=== PATIENT | female | born 1990 | race American Indian/Alaskan Native ===

== ENCOUNTER 2018-04-21 05:40 | Emergency (ER) | payer SELFPAY ==
[2018-04-21] MEDS ORDERED: D50W (25GM) Syringe IV ONE ×2 (05:52→06:00)
--- NOTE | 2018-04-21 06:42 | Emergency Department Report ---
ED General Adult HPI - General Chief complaint: Hypoglycemia Stated complaint: LOW BLOOD GLUCOSE Time Seen by Provider: 04/21/18 06:26 Source: patient, family, EMS (ems notes not available at time of chart dictation), RN notes reviewed Mode of arrival: Stretcher Limitations: No Limitations - History of Present Illness Initial comments: This is a 27-year-old female who is unknown to this provider previously, primary care doctor at [facility], past medical history of eating disorder as per family, currently taking Adderall, BuSpar and as needed Ativan. Presents to the ER with EMS after episode of hypoglycemia. This was corrected with D5 1 amp, patient indicates she is not eating that much. Family indicates this is happened in the past. The patient denies headache, neck pain, chest pain, abdominal pain, shortness of breath, urinary symptoms. She indicates to 3 episodes of loose, watery, diarrhea. She is not taking any hypoglycemic medications. -: Gradual Consistency: intermittent Improves with: medication Worsens with: other (symptoms are worsened when the patient does not.) Associated Symptoms: malaise, weakness, other (as per history of present illness ). denies: confusion, chest pain, cough, diaphoresis, fever/chills, headaches, loss of appetite, nausea/vomiting, rash, seizure, shortness of breath, syncope Treatments Prior to Arrival: other (as per history of present illness) - Related Data Previous Rx's Medication Instructions Recorded Last Taken Type Diabetic Supplies,Miscell [Ez-Vac] 1 each Q6HR #30 miscell 04/21/18 Unknown Rx Medical Supply, Miscellaneous 1 each QID #1 each 04/21/18 Unknown Rx [Ada] Allergies Allergy/AdvReac Type Severity Reaction Status Date / Time No Known Allergies Allergy Verified 04/21/18 06:18 ED Review of Systems ROS: Stated complaint: LOW BLOOD GLUCOSE Other details as noted in HPI Comment: All other systems reviewed and negative ED Past Medical Hx - Past Medical History Previous Medical History?: Yes Additional medical history: ADHD, anxiety eating disorder - Surgical History Past Surgical History?: No - Social History Smoking Status: Never Smoker Substance Use Type: None - Medications Home Medications: Home Medications Medication Instructions Recorded Confirmed Last Taken Type Diabetic Supplies,Miscell [Ez-Vac] 1 each Q6HR #30 miscell 04/21/18 Unknown Rx Medical Supply, Miscellaneous 1 each QID #1 each 04/21/18 Unknown Rx [[place]] ED Physical Exam - General Limitations: No Limitations General appearance: alert, in no apparent distress - Head Head exam: Present: atraumatic, normocephalic - Eye Eye exam: Present: normal appearance, PERRL, EOMI, other (visual acuity intact to finger counting, color perception, reading at a close distance). Absent: nystagmus - ENT ENT exam: Present: normal exam, normal orophraynx, mucous membranes moist, normal external ear exam - Neck Neck exam: Present: normal inspection, full ROM - Respiratory Respiratory exam: Present: normal lung sounds bilaterally. Absent: respiratory distress - Cardiovascular Cardiovascular Exam: Present: regular rate, normal rhythm, normal heart sounds. Absent: bradycardia, tachycardia, irregular rhythm, systolic murmur, diastolic murmur, rubs, gallop - GI/Abdominal GI/Abdominal exam: Present: soft, normal bowel sounds. Absent: distended, tenderness, guarding, rebound, rigid, pulsatile mass - Extremities Exam Extremities exam: Present: normal inspection, full ROM, normal capillary refill , other (there is no palpable cord. There is a negative Homans sign). Absent: pedal edema, joint swelling, calf tenderness - Back Exam Back exam: Present: normal inspection, full ROM. Absent: tenderness, CVA tenderness (R), paraspinal tenderness, vertebral tenderness - Neurological Exam Neurological exam: Present: alert, oriented X3 - Psychiatric Psychiatric exam: Present: depressed, anxious. Absent: homicidal ideation, suicidal ideation - Skin Skin exam: Present: warm, dry, intact, normal color. Absent: rash ED Course Vital Signs 04/21/18 04/21/18 04/21/18 05:40 05:46 05:58 Temperature 98 F Pulse Rate 89 Respiratory 16 Rate Blood Pressure 100/63 100/63 100/63 O2 Sat by Pulse 99 100 Oximetry 04/21/18 04/21/18 04/21/18 06:00 06:11 06:15 Temperature Pulse Rate Respiratory 16 Rate Blood Pressure 100/63 102/65 O2 Sat by Pulse 98 100 100 Oximetry 04/21/18 04/21/18 04/21/18 06:30 09:05 09:16 Temperature Pulse Rate Respiratory Rate Blood Pressure 102/65 103/63 103/63 O2 Sat by Pulse 99 100 Oximetry 04/21/18 04/21/18 04/21/18 09:30 09:52 10:00 Temperature Pulse Rate Respiratory Rate Blood Pressure 103/63 103/63 103/63 O2 Sat by Pulse 100 98 98 Oximetry 04/21/18 04/21/18 04/21/18 10:16 10:30 10:46 Temperature Pulse Rate Respiratory Rate Blood Pressure 103/63 103/63 103/63 O2 Sat by Pulse 100 99 100 Oximetry 04/21/18 04/21/18 11:00 11:16 Temperature Pulse Rate Respiratory Rate Blood Pressure 103/63 103/63 O2 Sat by Pulse 100 98 Oximetry - Reevaluation(s) Reevaluation #1: 04/21/18 08:52 Differential diagnosis, including but not limited to: Urinary tract infection, thyroid abnormality, hepatic abnormality, hypoglycemia secondary to poor oral intake Assessment and plan: 27-year-old female with hypoglycemia. This is her second episode within the week. She is not taking any hypoglycemic medications. The etiology of her hypoglycemia is most likely poor oral intake. The patient is alert and oriented 3, clinically sober, walks with a steady gait , and has a GCS of 15. Patient's initially was eating sparsely in the emergency room, and had another episode of hypoglycemia. This was corrected with D50, and when the patient was awake explained to the patient explicitly that she needed to eat all the food that was presented to her, and that the risks of not eating enough food in the day could resultant persistent hypoglycemia, which in turn could result in , disability, paralysis, loss of quality of life. The patient does not meet 1013 criteria at this time, she is not homicidal or suicidal, but she also exhibits decision-making capacity. I will obtain a crisis/mental health evaluation to assist in giving patient outpatient resources for what is likely an exacerbation of her underlying reported eating disorder. I have also explained to the patient's family how to best watch her at home, and they were taught how to use a glucometer, and finger testing strips. Reevaluation #2: 04/21/18 10:53 The patient has been seen in conjunction with the crisis team who have provided her with outpatient resources for possible eating disorders. Patient is noted to be eating. Her Accu-Chek remains within acceptable limits. She is again encouraged to eat throughout the day, and family was educated as to how to perform finger testing at home. ED Medical Decision Making - Lab Data Result diagrams: 04/21/18 06:25 04/21/18 06:25 Critical care attestation.: If time is entered above; I have spent that time in minutes in the direct care of this critically ill patient, excluding procedure time. ED Disposition Clinical Impression: Hypoglycemia Disposition: DC-01 TO HOME OR SELFCARE Is pt being admited?: No Does the pt Need Aspirin: No Condition: Good Instructions: Non-diabetic Hypoglycemia (ED) Additional Instructions: Make certain to eat at least 4 meals a day. Not eating as directed can result in persistent low blood sugar levels, which in turn and result in , disability, paralysis, loss of quality of life. Use the glucometer device as directed, in conjunction with the finger testing strips and needles. Follow-up with a primary care doctor within the next month. Follow-up with psychiatrist or therapist within the next month. Return to the ER right away with fevers, chills, lethargy, irritability, projectile vomiting, change in mental status, confusion, inability to tolerate liquid feeds. Prescriptions: Diabetic Supplies,Miscell [Ez-Vac] 1 each MC Q6HR #30 miscell Medical Supply, Miscellaneous [Ada] 1 each MC QID #1 each Referrals: PRIMARY CAREMD [Referring] - 3-5 Days ELENITA CARRILLO MD [Staff Physician] - 3-5 Days [facility] [Outside] - 3-5 Days
[2018-04-21 07:15] LABS: Basophils % (Auto) 0.4 % (0.0-1.8); Lymphocytes # (Auto) 1.2 K/mm3 (1.2-5.4); Lymphocytes % (Auto) 22.5 % (13.4-35.0); Mean Corpuscular HGB Conc 37 % (30-34); Mean Corpuscular Hemoglobin 35 pg (28-32); Mean Corpuscular Volume 96 fl (79-97); Monocytes # (Auto) 0.4 K/mm3 (0.0-0.8); Platelet Count 314 K/mm3 (140-440); Red Blood Count 3.63 M/mm3 (3.65-5.03); Red Cell Distribution Width 14.2 % (13.2-15.2)
[2018-04-21 07:28] LABS: BUN/Creatinine Ratio 17; Blood Urea Nitrogen 5 mg/dL (7-17); Calcium 8.3 mg/dL (8.4-10.2); Hemoglobin 12.8 gm/dl (10.1-14.3); Hemolysis Index 5
[2018-04-21 07:32] LABS: Alanine Aminotransferase 9 units/L (7-56); Albumin 4.1 g/dL (3.9-5)
[2018-04-21 07:36] LABS: Bilirubin,Direct < 0.2 mg/dL (0-0.2)
[2018-04-21 08:42] LABS: Bilirubin,Urine NEG (Negative); Blood,Urine NEG (Negative); Color,Urine Yellow (Yellow); Mucus,Urine FEW /HPF; Protein,Urine <15 mg/dL mg/dL (Negative); Urobilinogen,Urine < 2.0 mg/dL (<2.0)
[2018-04-21 08:53] LABS: Amphetamine Screen,Urine PRESUMPTIVE NEGATIVE; Benzodiazepines Screen,Urine PRESUMPTIVE NEGATIVE; Cannabinoid Screen,Urine PRESUMPTIVE NEGATIVE; Cocaine Screen,Urine PRESUMPTIVE NEGATIVE; Methadone Screen,Urine PRESUMPTIVE NEGATIVE; Opiate Screen,Urine PRESUMPTIVE NEGATIVE
[2018-04-21 10:35] VITALS: BP 103/63
== END 2018-04-21 11:39 | disposition home or self-care (01) ==
LOC: ED 05:40
DX: E16.2 Hypoglycemia, unspecified (principal); F90.9 Attention-deficit hyperactivity disorder, unspecified type; F41.9 Anxiety disorder, unspecified
CPT/HCPCS: 36415; 80048; 80074; 80307; 81001; 82962; 84439; 84443; 84702; 85025; 96374; 99284

== ENCOUNTER 2020-10-28 15:37 | Emergency (ER) | payer SELFPAY ==
[2020-10-28] MEDS ORDERED: levETIRAcetam 1000 MG/NS 0.75% 1,000 MG/100 ML BAG IV ONE (16:25)
--- NOTE | 2020-10-28 16:29 | Emergency Department Report ---
ED Seizure HPI - General Chief Complaint: Seizure Stated Complaint: SEIZURE Time Seen by Provider: 10/28/20 16:16 Source: patient, EMS Mode of arrival: Stretcher Limitations: Altered Mental Status - History of Present Illness Initial Comments: Patient is a 30-year-old F [place]ian female who according to records has a history of seizures and alcohol abuse who is presenting status post seizure. Patient currently is postictal and is unable to give affective history. Patient does state that she takes seizure medicines but cannot detail which she takes. Patient is a last visit here she signed out AGAINST MEDICAL ADVICE. Patient states she is just sleepy at the moment but again would not give any additional history likely secondary to a postictal state - Related Data Previous Rx's Medication Instructions Recorded Last Taken Type Diabetic Supplies,Miscell [Ez-Vac] 1 each MC Q6HR #30 miscell 04/21/18 Unknown Rx Medical Supply, Miscellaneous 1 each MC QID #1 each 04/21/18 Unknown Rx [[place]] Allergies Allergy/AdvReac Type Severity Reaction Status Date / Time No Known Allergies Allergy Verified 04/21/18 06:18 ED Review of Systems ROS: Stated complaint: SEIZURE Other details as noted in HPI Comment: Unobtainable due to pts medical conditions ED Past Medical Hx - Past Medical History Hx Seizures: Yes Additional medical history: ADHD, anxiety, eating disorder - Social History Smoking Status: Current Every Day Smoker Substance Use Type: Alcohol - Medications Home Medications: Home Medications Medication Instructions Recorded Confirmed Last Taken Type Diabetic Supplies,Miscell [Ez-Vac] 1 each MC Q6HR #30 miscell 04/21/18 Unknown Rx Medical Supply, Miscellaneous 1 each MC QID #1 each 04/21/18 Unknown Rx [[place]] ED Physical Exam - General Limitations: Altered Mental Status General appearance: in no apparent distress, lethargic, postictal - Head Head exam: Present: atraumatic, normocephalic - Eye Eye exam: Present: normal appearance, PERRL, EOMI - ENT ENT exam: Present: mucous membranes moist - Neck Neck exam: Present: normal inspection - Respiratory Respiratory exam: Present: normal lung sounds bilaterally. Absent: respiratory distress, wheezes, rales, rhonchi - Cardiovascular Cardiovascular Exam: Present: regular rate, normal rhythm, normal heart sounds. Absent: systolic murmur, diastolic murmur, rubs, gallop - GI/Abdominal GI/Abdominal exam: Present: soft, normal bowel sounds. Absent: distended, tenderness, guarding, rebound - Extremities Exam Extremities exam: Present: normal inspection - Back Exam Back exam: Present: normal inspection - Neurological Exam Neurological exam: Present: alert, oriented X3 - Psychiatric Psychiatric exam: Present: normal affect, normal mood - Skin Skin exam: Present: warm, dry, intact, normal color. Absent: rash ED Course Vital Signs 10/28/20 10/28/20 16:15 16:24 Temperature 98.5 F Pulse Rate 98 H Respiratory 18 20 Rate Blood Pressure 129/74 O2 Sat by Pulse 100 100 Oximetry ED Medical Decision Making - Lab Data Result diagrams: 10/28/20 16:32 10/28/20 16:32 Lab Results 10/28/20 10/28/20 10/28/20 Range/Units 16:32 16:32 16:32 WBC 5.5 (4.5-11.0) K/mm3 RBC 2.99 L (3.65-5.03) M/mm3 Hgb 10.5 (10.1-14.3) gm/dl Hct 32.0 (30.3-42.9) % MCV 107 H (79-97) fl MCH 35 H (28-32) pg MCHC 33 (30-34) % RDW 22.1 H (13.2-15.2) % Plt Count 353 (140-440) K/mm3 Lymph % (Auto) [employer] [place] % (Auto) [employer] Eos % (Auto) [employer] Baso % (Auto) [employer] Lymph # (Auto) [employer] [place] # (Auto) [employer]ings [employer] Eos # (Auto) [employer] Baso # (Auto) [employer]er Seg Neutrophils % [employer]er Seg Neutrophils # [employer] Sodium 139 (137-145) mmol/L Potassium 3.8 (3.6-5.0) mmol/L Chloride 104.2 (98-107) mmol/L Carbon Dioxide 22 (22-30) mmol/L Anion Gap 17 mmol/L BUN 8 (7-17) mg/dL Creatinine 0.4 L (0.6-1.2) mg/dL Estimated GFR > 60 ml/min BUN/Creatinine Ratio 20 % Glucose 101 H (65-100) mg/dL Calcium 9.0 (8.4-10.2) mg/dL HCG, Qual Negative (Negative) Urine Color (Yellow) Urine Turbidity (Clear) Urine pH (5.0-7.0) Ur Specific [place] (1.003-1.030) Urine Protein (Negative) mg/dL Urine Glucose (UA) (Negative) mg/dL Urine Ketones (Negative) mg/dL Urine Blood (Negative) Urine Nitrite (Negative) Urine Bilirubin (Negative) Urine Urobilinogen (<2.0) mg/dL Ur Leukocyte Esterase (Negative) Urine WBC (Auto) (0.0-6.0) /HPF Urine RBC (Auto) (0.0-6.0) /HPF U Epithel Cells (Auto) (0-13.0) /HPF Urine Opiates Screen Urine Methadone Screen Ur Barbiturates Screen Ur Phencyclidine Scrn Ur Amphetamines Screen U Benzodiazepines Scrn Urine Cocaine Screen U Marijuana (THC) Screen Drugs of Abuse Note Plasma/Serum Alcohol (0-0.07) % 10/28/20 10/28/20 10/28/20 Range/Units 16:32 19:54 19:54 WBC (4.5-11.0) K/mm3 RBC (3.65-5.03) M/mm3 Hgb (10.1-14.3) gm/dl Hct (30.3-42.9) % MCV (79-97) fl MCH (28-32) pg MCHC (30-34) % RDW (13.2-15.2) % Plt Count (140-440) K/mm3 Lymph % (Auto) [place] % (Auto) Eos % (Auto) Baso % (Auto) Lymph # (Auto) [place] # (Auto) Eos # (Auto) Baso # (Auto) Seg Neutrophils % Seg Neutrophils # Sodium (137-145) mmol/L Potassium (3.6-5.0) mmol/L Chloride (98-107) mmol/L Carbon Dioxide (22-30) mmol/L Anion Gap mmol/L BUN (7-17) mg/dL Creatinine (0.6-1.2) mg/dL Estimated GFR ml/min BUN/Creatinine Ratio % Glucose (65-100) mg/dL Calcium (8.4-10.2) mg/dL HCG, Qual (Negative) Urine Color Straw (Yellow) Urine Turbidity Clear (Clear) Urine pH 5.0 (5.0-7.0) Ur Specific [place] 1.012 (1.003-1.030) Urine Protein <15 mg/dl (Negative) mg/dL Urine Glucose (UA) Neg (Negative) mg/dL Urine Ketones Neg (Negative) mg/dL Urine Blood Neg (Negative) Urine Nitrite Neg (Negative) Urine Bilirubin Neg (Negative) Urine Urobilinogen < 2.0 (<2.0) mg/dL Ur Leukocyte Esterase Neg (Negative) Urine WBC (Auto) 1.0 (0.0-6.0) /HPF Urine RBC (Auto) 1.0 (0.0-6.0) /HPF U Epithel Cells (Auto) 3.0 (0-13.0) /HPF Urine Opiates Screen Negative Urine Methadone Screen Negative Ur Barbiturates Screen Negative Ur Phencyclidine Scrn Negative Ur Amphetamines Screen Negative U Benzodiazepines Scrn Negative Urine Cocaine Screen Negative U Marijuana (THC) Screen Negative Drugs of Abuse Note Disclamer Plasma/Serum Alcohol 0.33 H (0-0.07) % - Medical Decision Making After waking up the patient is started being very demanding with nursing staff. Looking at the patient's laboratory studies it appears as though the patient is significantly alcohol intoxicated. I did confront the patient about this since the patient was actually at work when she had her "seizure". Patient does admit that she has had seizures in the past but weaned herself off above Dilantin and Keppra because she "does not like the way they make me feel". Patient states that she was drinking late last night but was not drinking at work. The level of her alcohol in her blood does not suggest not drinking for the last at least 8 hours. Patient then started complaining of some lower abdominal pain and not having a menstrual period for the last year. Urinalysis was checked which showed no evidence of UTI. Patient was able to eat with no issue here in the emergency department. test is normal. Patient will be discharged in the custody of family member. Patient given resources for alcohol abuse programs and she is discharged. Critical care attestation.: If time is entered above; I have spent that time in minutes in the direct care of this critically ill patient, excluding procedure time. ED Disposition Clinical Impression: Alcohol intoxication Qualifiers: Complication of substance-induced condition: uncomplicated Qualified Code(s): F10.920 - Alcohol use, unspecified with intoxication, uncomplicated Disposition: DC-01 TO HOME OR SELFCARE Is pt being admited?: No Does the pt Need Aspirin: No Condition: Stable Instructions: Alcohol Use Disorder, Alcohol Intoxication Referrals: PRIMARY CARE, [Primary Care Provider] - 3-5 Days Time of Disposition: 20:41
[2020-10-28 17:13] LABS: Blood Urea Nitrogen 8 mg/dL (7-17); Hemolysis Index 25
[2020-10-28 17:14] LABS: BUN/Creatinine Ratio 20
[2020-10-28 17:35] LABS: Hemoglobin 10.5 gm/dl (10.1-14.3); Mean Corpuscular HGB Conc 33 % (30-34); Mean Corpuscular Volume 107 fl (79-97); Platelet Count 353 K/mm3 (140-440); Red Blood Count 2.99 M/mm3 (3.65-5.03); Red Cell Distribution Width 22.1 % (13.2-15.2)
[2020-10-28 20:15] LABS: Amphetamine Screen,Urine Negative; Benzodiazepines Screen,Urine Negative; Cannabinoid Screen,Urine Negative; Cocaine Screen,Urine Negative; Methadone Screen,Urine Negative; Opiate Screen,Urine Negative
[2020-10-28 20:32] LABS: Bilirubin,Urine NEG (Negative); Blood,Urine NEG (Negative); Color,Urine Straw (Yellow); Protein,Urine <15 mg/dL mg/dL (Negative); Urobilinogen,Urine < 2.0 mg/dL (<2.0)
[2020-10-29 00:53] VITALS: BP 121/77
== END 2020-10-28 21:15 | disposition home or self-care (01) ==
LOC: ED 15:37
DX: F10.920 Alcohol use, unspecified with intoxication, uncomplicated (principal); F17.200 Nicotine dependence, unspecified, uncomplicated; F41.9 Anxiety disorder, unspecified; Z79.899 Other long term (current) drug therapy
CPT/HCPCS: 36415; 80048; 80307; 81001; 84703; 85025; 96374; 99284; J1953; 80320; G0480

== ENCOUNTER 2021-01-04 15:30 | Emergency (ER) | payer BC ==
[2021-01-04] MEDS ORDERED: LORazepam 2 MG/ML VIAL IV ONE (16:07)
[2021-01-04] MEDS ORDERED: levETIRAcetam 500 MG/5 ML ORAL LIQD PO ONE (16:07)
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
[2021-01-04 21:03] VITALS: BP 88/54
== END 2021-01-04 20:40 | disposition home or self-care (01) ==
LOC: ED 15:30
DX: R56.9 Unspecified convulsions (principal); F41.9 Anxiety disorder, unspecified; Z79.899 Other long term (current) drug therapy
CPT/HCPCS: 96374; 99283; J2060

== ENCOUNTER 2021-01-13 07:42 | Emergency (ER) | payer BC ==
[2021-01-13] MEDS ORDERED: levETIRAcetam 1000 MG/NS 0.75% 1,000 MG/100 ML BAG IV ONE (07:58)
[2021-01-13] MEDS ORDERED: BUTALB/ACETAMINOPHEN/CAFFEINE TAB PO ONE (07:59)
[2021-01-13] MEDS ORDERED: SODIUM CHLORIDE 0.9% 1000 ML 1,000 ML IV ONE (07:59)
--- NOTE | 2021-01-13 08:05 | Emergency Department Report ---
HPI - General Chief Complaint: Seizure PUI?: No Time Seen by Provider: 01/13/21 07:55 - HPI HPI: Room 40 The patient is a 30-year-old female present with a chief complaint of seizure. Patient has a history of seizures and states she has been compliant "for the most part" with her Keppra. The patient was at work when she had a witnessed generalized tonic-clonic seizure. EMS was called and the patient had a second seizure with EMS lasting approximately 30 seconds. Patient was administered Ativan by EMS prior to arrival. Patient now complains of a headache, fatigue and chronic back pain from a herniated disc ED Past Medical Hx - Past Medical History Hx Seizures: Yes Additional medical history: seizures, ADHD, anxiety, eating disorder - Surgical History Past Surgical History?: No - Family History Family history: no significant - Social History Smoking Status: Never Smoker Substance Use Type: None - Medications Home Medications: Home Medications Medication Instructions Recorded Confirmed Last Taken Type levETIRAcetam [Keppra TAB] 500 mg PO BID #60 tablet 01/04/21 01/13/21 Unknown Rx Butalb/Acetamin/Caff 50-325-40 2 tab PO Q8HR PRN #10 tablet 01/13/21 Unknown Rx [Fioricet 50-325-40] Dextroamphetamine/Amphetamine 20 mg PO DAILY 01/13/21 01/13/21 Unknown History [Adderall 20 mg Tablet] LORazepam [Ativan] 2 mg PO Q8HR PRN 01/13/21 01/13/21 Unknown History ED Review of Systems ROS: Stated complaint: SEIZURE Other details as noted in HPI Constitutional: malaise Eyes: denies: eye pain ENT: denies: throat pain Respiratory: no symptoms reported Cardiovascular: denies: chest pain Endocrine: no symptoms reported Gastrointestinal: nausea. denies: abdominal pain Genitourinary: denies: dysuria Musculoskeletal: back pain Neurological: headache Physical Exam - Physical Exam Vital Signs: Vital Signs 01/13/21 07:47 Temperature 97.8 F Pulse Rate 92 H Respiratory 18 Rate Blood Pressure 96/58 [Right] O2 Sat by Pulse 100 Oximetry Physical Exam: GENERAL: The patient is well-developed well-nourished female lying on stretcher not appearing to be in acute distress. [] HEENT: Normocephalic. Atraumatic. Extraocular motions are intact. Patient has moist mucous membranes. NECK: Supple. Trachea midline CHEST/LUNGS: Clear to auscultation. There is no respiratory distress noted. HEART/CARDIOVASCULAR: Regular. There is no tachycardia. There is no gallop rub or murmur. ABDOMEN: Abdomen is soft, nontender. Patient has normal bowel sounds. There is no abdominal distention. SKIN: There is no rash. There is no edema. There is no diaphoresis. NEURO: The patient is awake, alert, and oriented. The patient is cooperative. The patient has no focal neurologic deficits. The patient has normal speech. Cranial nerves II through XII grossly intact MUSCULOSKELETAL: There is no evidence of acute injury. ED Course Vital Signs 01/13/21 07:47 Temperature 97.8 F Pulse Rate 92 H Respiratory 18 Rate Blood Pressure 96/58 [Right] O2 Sat by Pulse 100 Oximetry ED Medical Decision Making - Lab Data Result diagrams: 01/13/21 08:16 01/13/21 08:16 Laboratory Tests 01/13/21 01/13/21 01/13/21 08:16 08:16 08:16 WBC 5.3 RBC 3.09 L Hgb 11.1 Hct 32.4 MCV 105 H MCH 36 H MCHC 34 RDW 18.8 H Plt Count 308 Lymph % (Auto) 34.2 [place] % (Auto) 8.9 H Eos % (Auto) 0.6 Baso % (Auto) 0.8 Lymph # (Auto) 1.8 [place] # (Auto) 0.5 Eos # (Auto) 0.0 Baso # (Auto) 0.0 Seg Neutrophils % 55.5 Seg Neutrophils # 2.9 Sodium 137 Potassium 3.9 Chloride 103.0 Carbon Dioxide 24 Anion Gap 14 BUN 8 Creatinine 0.4 L Estimated GFR > 60 BUN/Creatinine Ratio 20 Glucose 87 Calcium 8.1 L Magnesium 2.10 Total Bilirubin Direct Bilirubin Indirect Bilirubin AST ALT Alkaline Phosphatase Total Protein Albumin Albumin/Globulin Ratio HCG, Qual Negative 01/13/21 09:38 WBC RBC Hgb Hct MCV MCH MCHC RDW Plt Count Lymph % (Auto) [place] % (Auto) Eos % (Auto) Baso % (Auto) Lymph # (Auto) [place] # (Auto) Eos # (Auto) Baso # (Auto) Seg Neutrophils % Seg Neutrophils # Sodium Potassium Chloride Carbon Dioxide Anion Gap BUN Creatinine Estimated GFR BUN/Creatinine Ratio Glucose Calcium Magnesium Total Bilirubin 0.30 Direct Bilirubin < 0.2 Indirect Bilirubin 0.1 AST 30 ALT 15 Alkaline Phosphatase 83 Total Protein 6.7 Albumin 3.9 Albumin/Globulin Ratio 1.4 HCG, Qual - Differential Diagnosis Seizure Critical care attestation.: If time is entered above; I have spent that time in minutes in the direct care of this critically ill patient, excluding procedure time. ED Disposition Clinical Impression: Seizure-like activity Disposition: DC-01 TO HOME OR SELFCARE Is pt being admited?: No Does the pt Need Aspirin: No Condition: Stable Instructions: Epilepsy, [id number] Additional Instructions: Return to the emergency department should you develop worsening symptoms, inability to tolerate food or liquids, high fever or any other concerns Prescriptions: Butalb/Acetamin/Caff 50-325-40 [Fioricet 50-325-40] 2 tab PO Q8HR PRN #10 tablet PRN Reason: Headache Referrals: PRIMARY CARE, [Primary Care Provider] - 3-5 Days AAMIR WHEELER MD [Staff Physician] - 3-5 Days (Dr. Wheeler is a neurologist. Please follow-up with him for further evaluation) Time of Disposition: 10:11
[2021-01-13 08:49] LABS: Basophils % (Auto) 0.8 % (0.0-1.8); Eosinophils % (Auto) 0.6 % (0.0-4.3); Hematocrit 32.4 % (30.3-42.9); Hemoglobin 11.1 gm/dl (10.1-14.3); Lymphocytes # (Auto) 1.8 K/mm3 (1.2-5.4); Lymphocytes % (Auto) 34.2 % (13.4-35.0); Mean Corpuscular HGB Conc 34 % (30-34); Mean Corpuscular Volume 105 fl (79-97); Monocytes # (Auto) 0.5 K/mm3 (0.0-0.8); Monocytes % (Auto) 8.9 % (0.0-7.3); Platelet Count 308 K/mm3 (140-440); Red Blood Count 3.09 M/mm3 (3.65-5.03); Red Cell Distribution Width 18.8 % (13.2-15.2)
[2021-01-13 09:25] LABS: Blood Urea Nitrogen 8 mg/dL (7-17); Calcium 8.1 mg/dL (8.4-10.2); Hemolysis Index 12
[2021-01-13 09:41] LABS: BUN/Creatinine Ratio 20
[2021-01-13 09:51] LABS: Alanine Aminotransferase 15 units/L (7-56); Albumin 3.9 g/dL (3.9-5)
[2021-01-13 09:54] LABS: Bilirubin,Direct < 0.2 mg/dL (0-0.2)
[2021-01-13] MEDS ORDERED: CALCIUM GLUCONATE 1,000 MG in SODIUM CHLORIDE 0.9% 100 ML IV ONE (10:30)
[2021-01-13 11:40] VITALS: BP 101/62
== END 2021-01-13 11:40 | disposition home or self-care (01) ==
LOC: ED 07:42
DX: R56.9 Unspecified convulsions (principal); Z79.899 Other long term (current) drug therapy
CPT/HCPCS: 36415; 80048; 80076; 83735; 84703; 85025; 96365; 96367; 99284; J0610; J1953; J7030

== ENCOUNTER 2021-05-16 22:05 | Emergency (ER) | payer SELFPAY ==
[2021-05-16 22:17] VITALS: BP 103/74
--- NOTE | 2021-05-19 18:06 | Electrocardiograph Report ---
[facility] Test Date: 2021-05-16 Test Time: 22:57:41 Pat Name: FLORECITA KWAN Department: Room: Gender: F [employer] Adjuster: MICHELLE : 1990 Requested By: LAYLA CHASE Order Number: [id number] Reading MD: Johan German Measurements Intervals [place] Rate: 88 P: 66 OK: 147 QRS: 65 QRSD: 96 T: 60 QT: 408 QTc: 495 Interpretive Statements Sinus rhythm No previous ECG available for comparison Electronically Signed On 05-19-2021 18:06:23 EDT by Johan German
== END 2021-05-17 07:18 | disposition left against medical advice (07) ==
LOC: ED 22:05
DX: R56.9 Unspecified convulsions (principal); Z53.21 Procedure and treatment not carried out due to patient leaving prior to being seen by health care provider
CPT/HCPCS: 93005